=== PATIENT | female | born 1955 | race Caucasian/White ===

== ENCOUNTER → 2017-08-10 | Outpatient (CLI) | payer BC ==
--- NOTE | 2017-08-10 17:06 | WOMENS IMAGING REPORT ---
EXAM DESCRIPTION: 3D SCREENING MAMMO BILAT COMPLETED DATE/TIME: 08/10/2017 9:09 am REASON FOR STUDY: ROUTINE SCREENING; Z12.31 Z12.31 ENCNTR SCREEN MAMMOGRAM FOR MALIGNANT NEOPLASM O F EVELIA COMPARISON: 2014, 2015 TECHNIQUE: Standard craniocaudal and mediolateral oblique views of each breast recorded using digita l acquisition and breast tomosynthesis. LIMITATIONS: None. FINDINGS: No masses, calcifications or architectural distortion. No areas of suspicion. Read with the assistance of CAD. .[facility] - R2 Cenova Version 1.3 .[facility] - R2 Cenova Version 1.3 .[facility] - R2 Cenova Version 2.4 .[facility] [place] R2 Cenova Version 2.4 .[facility] - R2 Group Sales Representative Version 9.2 IMPRESSION: NORMAL MAMMOGRAM. BIRADS 1. BREAST DENSITY: a. The breasts are almost entirely fatty. BIRAD: 1 NEGATIVE RECOMMENDATION: ROUTINE SCREENING COMMENT: The patient has been notified of the results by letter per [place] requirements. Additional no tification policies are in place for contacting patient with suspicious or incomplete findings. Quality ID #225: The [employer] recommends an annual screening mammogram for women aged 40 years or over. This facility utilizes a reminder system to ensure that all patients receive reminder letters, and/or direct phone calls for appointments. This includes reminders for routine scr eening mammograms, diagnostic mammograms, or other Breast Imaging Interventions when appropriate. Th is patient will be placed in the appropriate reminder system. The [employer] (ACR) has developed recommendations for screening MRI of the breast s in certain patient populations, to be used in conjunction with mammography. Breast MRI surveillanc e may be appropriate for women with more than 20% lifetime risk of developing breast cancer as deter mined by genetic testing, significant family history of the disease, or history of mantle radiation f or Hodgkins Disease. ACR Practice Guidelines 2008. DBT Technology DBT is a type of tomographic mammography. With conventional mammography, overlapping breast tissue ma y make lesions difficult to detect, even with good compression. DBT uses an x-ray tube that rotates a round the breast, taking images at different angles. These images are then combined to create thin sl ices of the breast that the radiologist can view as a 3D reconstruction. The [employer] unit can perform full-field digital mammograms (2D imaging); or DBT (3D imaging); or both, in a combination mode that quickly performs both the mammogram and the tomosynthesis scan while the breast is still compressed. PQRS 6045F: Fluoroscopic imaging is not utilized for breast tomosynthesis. TECHNICAL DOCUMENTATION: FINDING NUMBER: (1) ASSESSMENT: (1) JOB ID: [id number] [employer]- All Rights Reserved
== END ==
LOC: WI 08:54
PROVIDERS: ATTEND Physician Assistant Medical
DX: Z12.31 Encounter for screening mammogram for malignant neoplasm of breast (principal)
CPT/HCPCS: 77063; G0202; 77067

== ENCOUNTER 2018-04-28 09:29 | Emergency (ER) | payer BC ==
[2018-04-28] MEDS ORDERED: NORMAL SALINE 1000 ML 1,000 ML IV ONE (10:07)
[2018-04-28] MEDS ORDERED: NORMAL SALINE 500 ML IV ONE (10:08)
--- NOTE | 2018-04-28 10:09 | ER Document Report ---
ED Medical Screen (RME) - General Chief Complaint: Abnormal Lab Results Stated Complaint: ABNORMAL LABS Time Seen by Provider: 04/28/18 10:02 TRAVEL OUTSIDE OF THE [place] IN LAST 30 DAYS: No - HPI Notes: 04/28/18 10:08 Chronic kidney issues coming in for generalized weakness for 1 week and turning yellow. Denies any excessive Tylenol alcohol use negative travel no recent pets no pain cholecystectomy in the past no other liver issues Research Assistant Member: Dr. Broderick - Related Data Allergies/Adverse Reactions: No Known Allergies Allergy (Verified 04/28/18 09:30) Past Medical History - Social History Frequency of alcohol use: None Drug Abuse: None - Past Medical History Cardiac Medical History: Reports: Hx Hypertension Endocrine Medical History: Reports: Hx Diabetes Mellitus Type 2 Renal/ Medical History: Denies: Hx Peritoneal Dialysis GI Medical History: Reports: Hx Diverticulitis Past Surgical History: Reports: Hx Abdominal Surgery - colon resection, Hx Section, Hx Hysterectomy - Immunizations Hx Diphtheria, Pertussis, Tetanus Vaccination: Yes Review of Systems - Review of Systems Constitutional: Weakness Physical Exam - Vital signs Vitals: Temp Pulse Resp BP Pulse Ox 97.9 F 87 14 105/68 100 04/28/18 09:34 04/28/18 09:34 04/28/18 09:34 04/28/18 09:34 04/28/18 09:34 - Respiratory Respiratory status: No respiratory distress Chest status: Nontender Breath sounds: Normal Chest palpation: Normal - Cardiovascular Rhythm: Regular Heart sounds: Normal auscultation Course - Vital Signs Vital signs: Temp Pulse Resp BP Pulse Ox 97.9 F 87 14 105/68 100 04/28/18 09:34 04/28/18 09:34 04/28/18 09:34 04/28/18 09:34 04/28/18 09:34 Doctor's Discharge - Discharge Referrals: STEFANIA MILLER PA-C [Primary Care Provider] - Follow up as needed
[2018-04-28 10:43] LABS: VENOUS BLOOD BASE EXCESS -7.4 mmol/L; VENOUS BLOOD HCO3 19.3 mmol/L (20-32); VENOUS BLOOD PCO2 43.8 mmHg (35-63); VENOUS BLOOD PH 7.26 (7.30-7.42)
[2018-04-28 10:47] LABS: INTERNATIONAL RATION (INR) 1.18; PROTHROMBIN TIME 15.6 SEC (11.4-15.4)
[2018-04-28 11:02] LABS: HEMATOCRIT 30.8 % (36.0-47.0); HEMOGLOBIN 10.3 g/dL (12.0-15.5); MEAN CORPUSCULAR HEMOGLOBIN 30.9 pg (27.0-33.4); MEAN CORPUSCULAR HGB CONC 33.5 g/dL (32.0-36.0); MEAN CORPUSCULAR VOLUME 92 fl (80-97); PLATELET COUNT 230 10^3/uL (150-450); RED BLOOD COUNT 3.33 10^6/uL (3.72-5.28); RED CELL DISTRIBUTION WIDTH 14.9 % (11.5-14.0); WHITE BLOOD COUNT 10.6 10^3/uL (4.0-10.5)
[2018-04-28 11:05] LABS: ALANINE AMINOTRANSFERASE 158 U/L (9-52); ALBUMIN 3.8 g/dL (3.5-5.0); ALKALINE PHOSPHATASE 1365 U/L (38-126); ANION GAP 12 (5-19); ASPARTATE AMINO TRANSFERASE 170 U/L (14-36); BILIRUBIN,DIRECT 8.3 mg/dL (0.0-0.4); BILIRUBIN,TOTAL 9.3 mg/dL (0.2-1.3); BLOOD UREA NITROGEN 18 mg/dL (7-20); CALCIUM 9.8 mg/dL (8.4-10.2); CARBON DIOXIDE 18 mmol/L (22-30); CHLORIDE 111 mmol/L (98-107); GLUCOSE 125 mg/dL (75-110); LIPASE 155.8 U/L (23-300); POTASSIUM 3.8 mmol/L (3.6-5.0); SODIUM 141.2 mmol/L (137-145); TOTAL PROTEIN 6.9 g/dL (6.3-8.2)
[2018-04-28 11:07] LABS: ACETAMINOPHEN < 10 ug/mL (10-30); ALCOHOL < 10 mg/dL (NONE DETECTED)
[2018-04-28 11:26] LABS: ABSOLUTE LYMPHOCYTES# (MANUAL) 2.3 10^3/uL (0.5-4.7); ABSOLUTE MONOCYTES # (MANUAL) 0.4 10^3/uL (0.1-1.4); ABSOLUTE NEUTROPHILS# (MANUAL) 7.6 10^3/uL (1.7-8.2); BASOPHILS % (MANUAL) 1 % (0-2); EOSINOPHILS % (MANUAL) 1 % (0-6); HYPOCHROMASIA 2+; LYMPHOCYTES % (MANUAL) 22 % (13-45); MONOCYTES % (MANUAL) 4 % (3-13); PLATELET COMMENT ADEQUATE; ROULEAUX 1+; SEGMENTED NEUTROPHILS % (MAN) 72 % (42-78); TARGET CELLS SLIGHT; TOTAL CELLS COUNTED 100
--- NOTE | 2018-04-28 11:31 | ER Document Report ---
ED General - General Chief Complaint: Abnormal Lab Results Stated Complaint: ABNORMAL LABS Time Seen by Provider: 04/28/18 10:02 Notes: 63-year-old female with a history of glomerulonephritis presents to the ER with a week's history of weakness and jaundice. Patient was a little bit of mid abdominal pain some nausea but no vomiting. States she has noticed she has began turning yellow of her eyes and her skin. States she feels nauseous and weak. Noticed that her urines have been very dark. She denies any burning or pain with urination. Denies chest pain denies shortness of breath denies headache or blurred vision denies extremity numbness tingling or weakness. TRAVEL OUTSIDE OF THE [place] IN LAST 30 DAYS: No - Related Data Allergies/Adverse Reactions: No Known Allergies Allergy (Verified 04/28/18 09:30) Past Medical History - Social History Smoking Status: Current Every Day Smoker Frequency of alcohol use: None Drug Abuse: None Family History: Reviewed & Not Pertinent Patient has suicidal ideation: No Patient has homicidal ideation: No - Past Medical History Cardiac Medical History: Reports: Hx Hypertension Endocrine Medical History: Reports: Hx Diabetes Mellitus Type 2 Renal/ Medical History: Denies: Hx Peritoneal Dialysis GI Medical History: Reports: Hx Diverticulitis Past Surgical History: Reports: Hx Abdominal Surgery - colon resection, Hx Section, Hx Hysterectomy - Immunizations Hx Diphtheria, Pertussis, Tetanus Vaccination: Yes Hx Pneumococcal Vaccination: 08/24/15 Review of Systems - Review of Systems Constitutional: Malaise, Weakness. denies: Chills, Fever Cardiovascular: denies: Chest pain, Dyspnea Respiratory: denies: Short of breath Gastrointestinal: Abdominal pain. denies: Diarrhea, Nausea, Black stools, Rectal bleeding Genitourinary: Other - Colored urine. denies: Burning, Dysuria, Flank pain Skin: Change in color - Jaundice Neurological/Psychological: denies: Hallucinations, Paralysis, Headaches, Speech impairment, Numbness -: Yes All other systems reviewed and negative Physical Exam - Vital signs Vitals: Temp Pulse Resp BP Pulse Ox 97.9 F 87 14 105/68 100 04/28/18 09:34 04/28/18 09:34 04/28/18 09:34 04/28/18 09:34 04/28/18 09:34 - Notes Notes: GENERAL_APPEARANCE: well_nourished, alert, cooperative, uncomfortable VITALS: reviewed, see vital signs table. HEAD: no_swelling\tenderness on the head. EYES: PERRL, EOMI, conjunctiva_clear. Icteric sclera NOSE: no_nasal_discharge. MOUTH: Mucous membranes THROAT: no_throat_inflammation, no_airway_obstruction. no_lymphadenopathy NECK: supple, no_neck_tenderness, (-)thyromegaly. BACK: no_back_tenderness. CHEST_WALL: no_chest_tenderness. LUNGS: no_wheezing, no_rales, no_rhonchi, (-)accessory muscle use, good air exchange bilateral. HEART: normal_rate, normal_rhythm, normal_S1, normal_S2, (-)S3, (-)S4, no_ murmur, no_rub. ABDOMEN: normal_BS, soft, epigastric and left upper quadrant_abd_tenderness, (- )guarding, (-)rebound, no_organomegaly, no_abd_masses. EXTREMITIES: good pulses in all_extremities, no_swelling\tenderness in the extremities, no_edema. SKIN: warm, dry, jaundice_color, no_rash. MENTAL_STATUS: speech_clear, oriented_X_3, normal_affect, responds_ appropriately to questions. NEURO: Neg Motor or Sensory Deficits on exam, CN 2-12 intact, DTR 2+ symmetric x 4, No cerbellar signs Course - Re-evaluation Re-evalutation: 04/28/18 11:30 Patient arrives with some abdominal discomfort and jaundice for a week. She has noticed dark urine which is likely due to the bilirubin in the urine. Her bilirubin is significantly elevated. She has no history of any liver disease. She has a history of glomerulonephritis. Concern for obstructive jaundice. Getting a CT scan and ultrasound of the abdomen. Known history of malignancy. The patient IV fluids and check labs. 04/28/18 15:03 Patient initially want to go to [place]. However they did not have capacity and GI goes off service soon. Patient chooses [facility] we are awaiting a call from them. 04/28/18 15:13 Patient likely has a common duct stone. Patient likely has a common duct stone. LFTs are elevated total bilirubin is 9.3. Direct 8.3. There are no signs of any masses. The patient was accepted by Dr. Santana at [facility]. They have GI capability for ERCP/MRCP. The patient will be transferred when a bed becomes available. - Vital Signs Vital signs: Temp Pulse Resp BP Pulse Ox 97.9 F 87 21 H 135/52 H 100 04/28/18 09:34 04/28/18 09:34 04/28/18 14:00 04/28/18 14:00 04/28/18 14:00 - Laboratory Result Diagrams: 04/28/18 10:27 04/28/18 10:27 Laboratory results interpreted by me: 04/28/18 04/28/18 04/28/18 10:27 10:27 10:27 WBC 10.6 H RBC 3.33 L Hgb 10.3 L Hct 30.8 L RDW 14.9 H PT 15.6 H VBG pH VBG HCO3 Chloride 111 H Carbon Dioxide 18 L Creatinine 1.46 H Est GFR ( Amer) 44 L Est GFR (Non-Af Amer) 36 L Glucose 125 H Total Bilirubin 9.3 H Direct Bilirubin 8.3 H AST 170 H ALT 158 H Alkaline Phosphatase 1365 H Urine Protein Urine Bilirubin Urine Urobilinogen Urine Ascorbic Acid Acetaminophen < 10 L 04/28/18 04/28/18 10:27 12:23 WBC RBC Hgb Hct RDW PT VBG pH 7.26 L VBG HCO3 19.3 L Chloride Carbon Dioxide Creatinine Est GFR ( Amer) Est GFR (Non-Af Amer) Glucose Total Bilirubin Direct Bilirubin AST ALT Alkaline Phosphatase Urine Protein 100 H Urine Bilirubin MODERATE H Urine Urobilinogen 4.0 H Urine Ascorbic Acid 20 H Acetaminophen - Diagnostic Test Radiology results interpreted by me: 04/28/18 15:13 Abdomen/Pelvis CT 04/28/18 10:55 IMPRESSION: 1. Bile duct distention. Generally hypoenhancing pancreatic tail and body with pancreatic duct distention also suggested. Probable small pseudo pseudocyst and regional small lymph nodes. The gallbladder is distended, comparison ultrasound revealing gallstones. Gallstone pancreatitis and duct obstruction is certainly possible. If clinically warranted, MR/MRCP may help to further investigate. Most of the changes are new or progressive compared to 2016. 2. Diverticulosis, doubt active diverticulitis. Abdomen Ultrasound 04/28/18 11:22 IMPRESSION: Cholelithiasis. No evidence of acute cholecystitis. Discharge - Discharge Clinical Impression: Choledocholithiasis, Obstructive jaundice Condition: Fair Disposition: [facility] Referrals: STEFANIA MILLER PA-C [Primary Care Provider] - Follow up as needed
[2018-04-28 12:56] LABS: APPEARANCE,URINE SLIGHTLY-CLOUDY; BILIRUBIN,URINE MODERATE (NEGATIVE); COLOR,URINE AMBER; GLUCOSE, URINE NEGATIVE (NEGATIVE); KETONES,URINE NEGATIVE (NEGATIVE); LEUKOCYTE ESTERASE,URINE NEGATIVE (NEGATIVE); NITRITE,URINE NEGATIVE (NEGATIVE); PROTEIN,URINE 100 mg/dL (NEGATIVE); URIC ACID CRYSTALS,URINE RARE /HPF; URINE SPECIFIC GRAVITY 1.017
--- NOTE | 2018-04-28 13:00 | RADIOLOGY REPORT (SQ) ---
EXAM DESCRIPTION: U/S ABDOMEN LIMITED W/O DOP COMPLETED DATE/TIME: 04/28/2018 12:47 pm REASON FOR STUDY: Jaudice COMPARISON: None. TECHNIQUE: Dynamic and static grayscale images acquired of the right upper quadrant and recorded on PACS. Additional selected color Doppler and spectral images recorded. LIMITATIONS: Study limited due to acoustical interference from fat or from air in the bowel. FINDINGS: PANCREAS: Parts or all of the pancreas poorly seen secondary to acoustical interference fr om fat or from air in the bowel. LIVER: Echotexture is coarse with increased echogenicity consistent with fatty infiltration. No mass es. LIVER VASCULATURE: Normal directional flow of the main portal vein and hepatic veins. GALLBLADDER: Sludge and small gallstones. No pericholecystic fluid. No wall thickening. ULTRASOUND-DETECTED MONTAGUE'S SIGN: Negative. INTRAHEPATIC DUCTS AND COMMON DUCT: CBD and intrahepatic ducts normal caliber. No filling defects. INFERIOR VENA CAVA: Normal flow. AORTA: No aneurysm. RIGHT KIDNEY: Normal size. Normal echogenicity. No solid or suspicious masses. No hydronephros is. No calcifications. PERITONEAL CAVITY AND RIGHT PLEURAL SPACE: No ascites or effusions. OTHER: No other significant finding. IMPRESSION: Cholelithiasis. No evidence of acute cholecystitis. TECHNICAL DOCUMENTATION: JOB ID: [id number] [employer]- All Rights Reserved Reading location - IP/workstation name: [email or web address]
--- NOTE | 2018-04-28 13:22 | RADIOLOGY REPORT (SQ) ---
EXAM DESCRIPTION: CT ABD/PELVIS WITH IV ONLY COMPLETED DATE/TIME: 04/28/2018 1:03 pm REASON FOR STUDY: jaundice COMPARISON: 04/28/2018 abdominal ultrasound. TECHNIQUE: CT scan of the abdomen and pelvis performed using helical scanning technique with dynamic intravenous contrast injection. No oral contrast. Images reviewed with lung, soft tissue, and bone windows. Reconstructed coronal and sagittal MPR images reviewed. Delayed images for evaluation of the urinary system also acquired. All images stored on PACS. All CT scanners at this facility use dose modulation, iterative reconstruction, and/or weight based d osing when appropriate to reduce radiation dose to as low as reasonably achievable (ALARA). [facility]: Dose Right [facility]: CareDose [facility]: Dose Right [facility]: Teradose 4D [facility]: [employer] CONTRAST TYPE AND DOSE: contrast/concentration: Isovue 300.00 mg/ml; Total Contrast Delivered: 85.0 ml; Total Saline Delivered: 69.0 ml RENAL FUNCTION: Creatinine 1.5 RADIATION DOSE: CT Rad equipment meets quality standard of care and radiation dose reduction techniq ues were employed. CTDIvol: 7.5 - 10.5 mGy. DLP: 1417 mGy-cm.. LIMITATIONS: None. FINDINGS: LOWER CHEST: No significant findings. No nodules or infiltrates. LIVER: No enhancing lesions. Normal size and contours. There is, however, significant intrahepatic diffuse bile duct distention which is not seen in 2016. The proximal common duct also looks dilated to approximately 1.5 cm, progressive since prior. This tapers distally. No discrete mass or duct st ones appreciated, however the gallbladder is quite distended. Ultrasound has demonstrated cholelithi asis. SPLEEN: Normal size. No focal lesions. PANCREAS: Heterogeneous appearance throughout the body and tail of the pancreas. Suspect some duct d ilatation with parenchymal thinning generally. These changes look more pronounced compared to CT fro m 2016. Between the pancreas and the gastric fundus, there is a 1.7 cm possible pseudocyst. Regiona l lymph nodes are appreciated about the pancreas and near the isidoro. These generally look subcentime ter. GALLBLADDER: As above. ADRENAL GLANDS: No significant masses or asymmetry. RIGHT KIDNEY AND URETER: No solid masses. No significant calcification. No hydronephrosis or hydroure ter. LEFT KIDNEY AND URETER: No solid masses. No significant calcification. No hydronephrosis or hydrouret er. AORTA AND VESSELS: Dense aortic calcification without aneurysm. Patent major arterial branches. No overt venous clot. Somewhat attenuated appearance of the portal confluence. Regional lymph nodes ar e suggested here. RETROPERITONEUM: No retroperitoneal adenopathy, hemorrhage or masses. BOWEL AND PERITONEAL CAVITY: Scattered diverticula, most pronounced in the ascending colon and in the descending and sigmoid colon. Doubt active diverticulitis. No mechanical bowel obstruction. APPENDIX: Normal. PELVIS: No mass. No free fluid. Normal bladder. ABDOMINAL WALL: No masses. No hernias. BONES: No significant or acute findings. OTHER: No other significant finding. IMPRESSION: 1. Bile duct distention. Generally hypoenhancing pancreatic tail and body with pancrea tic duct distention also suggested. Probable small pseudo pseudocyst and regional small lymph nodes. The gallbladder is distended, comparison ultrasound revealing gallstones. Gallstone pancreatitis a nd duct obstruction is certainly possible. If clinically warranted, MR/MRCP may help to further inve stigate. Most of the changes are new or progressive compared to 2016. 2. Diverticulosis, doubt acti ve diverticulitis. TECHNICAL DOCUMENTATION: JOB ID: [id number] Quality ID # [id number]: Final reports with documentation of one or more dose reduction techniques (e.g., Au tomated exposure control, adjustment of the mA and/or kV according to patient size, use of iterative reconstruction technique) 2010 [employer]- All Rights Reserved Reading location - IP/workstation name: [email or web address]
[2018-04-28 14:30] VITALS: BP 135/52
[2018-04-28] MEDS ORDERED: MORPHINE SULFATE 10 MG/ML INJ IV ONE (16:33)
[2018-04-28] MEDS ORDERED: ONDANSETRON HCL INJ/PF 4 MG/2 ML SDV IV ONE (16:33)
[2018-04-29 08:20] LABS: HEPATITIS A AB IGM Negative (Negative); HEPATITIS B CORE AB IGM Negative (Negative); HEPATITS B SURFACE ANTIGEN Negative (Negative)
[2018-04-29 12:34] LABS: HEPATITIS C VIRUS ANTIBODY <0.1 s/co ratio (0.0-0.9)
== END 2018-04-28 19:00 | disposition short-term general hospital (02) ==
LOC: ER 09:29
DX: K80.51 Calculus of bile duct without cholangitis or cholecystitis with obstruction (principal); R53.1 Weakness; R53.81 Other malaise; R11.0 Nausea; R10.9 Unspecified abdominal pain; D72.829 Elevated white blood cell count, unspecified; I10 Essential (primary) hypertension; E11.9 Type 2 diabetes mellitus without complications; F17.200 Nicotine dependence, unspecified, uncomplicated
CPT/HCPCS: 99285; 96361; 96374; 96375; 36415; 80307 ×2; 82140; 83690; 85025; 85610; 85730; 80053; 81001; 82803; 83605; 80074; 76705; 74177; J2270; J2405; J7040